=== PATIENT | female | born 1970 | race African-American/Black ===

== ENCOUNTER 2022-05-10 19:48 | Emergency (ER) | payer OTHER ==
[2022-05-10] MEDS ORDERED: Ibuprofen 800 MG TAB ONE (20:24)
== END 2022-05-10 20:32 | disposition home or self-care (01) ==
LOC: MADERS 19:48
DX: S50.862A Insect bite (nonvenomous) of left forearm, initial encounter (principal); E11.9 Type 2 diabetes mellitus without complications; I10 Essential (primary) hypertension; Z79.899 Other long term (current) drug therapy; Z79.84 Long term (current) use of oral hypoglycemic drugs; W57.XXXA Bitten or stung by nonvenomous insect and other nonvenomous arthropods, initial encounter
CPT/HCPCS: 99282